=== PATIENT | male | born 1970 | race Caucasian/White ===

== ENCOUNTER 2019-10-25 04:56 | Day surgery (SDC) | payer OTHER, SELFPAY ==
[2019-10-25] VITALS (32 sets, daily range): BP systolic 84–148; BP diastolic 52–93; PULSE 56–92; RESP 12–20; TEMP 36.1–37.1; O2SAT 98–100
--- NOTE | ~2019-10-25 | XR_ITS ---
EXAMINATION: XR retrograde pyelo w/stent LT EXAM DATE: 10/25/2019 13:12 INDICATION: Cystoscopy. Stone extraction left side. TECHNIQUE: Fluoroscopy used during XR retrograde pyelo w/stent LT performed by Dr. Zach Goel MD. The DAP for this procedure was 0.1 mGym2. Cine run(s) available for review. FINDINGS: Left ureter was cannulated, injected. Final images demonstrate a double-J ureteral stent i n expected position. Correlate with procedure note. IMPRESSION: Fluoroscopy used during XR retrograde pyelo w/stent LT. Reviewed, dictated and finalized at location A.
--- NOTE | ~2019-10-25 | CT_ITS ---
EXAMINATION: CT abdomen pelvis wo con DATE: 10/25/2019 05:33 INDICATION: Left lower quadrant and left flank pain for 2 weeks. Hematuria. History of kidney stones. TECHNIQUE: Computed tomography (CT) of the abdomen and pelvis was performed without intravenous contr ast. Automated exposure control and iterative reconstruction technique were employed. Exam dose: 215 .04 mGy-cm total exam DLP. COMPARISON: 06/20/2010 CT renal scan FINDINGS: Calcified left hilar and mediastinal nodes consistent with old pulmonary granulomatous dise ase. The included lower lung zones are clear of infiltrate or consolidation. Mild discoid scarring in the left lower lobe. Normal heart size. No pericardial or pleural effusion. The liver, gallbladder, bile ducts, spleen, pancreas and pancreatic duct are unremarkable. Normal morphology of the adrenal glands. There is an approximately 6 x 3 x 3 mm partially obstructive calculus of the distal left ureter at th e left ureterovesical junction with mild associated hydroureteronephrosis and perinephric and periure teral stranding. Normal caliber of the abdominal aorta. No intraperitoneal or retroperitoneal or pelvic mass lesion or adenopathy or ascites. Normal appendix. No bowel obstruction or intraperitoneal free air. Small fat-containing umbilical hernia. Moderate degenerative disc disease at L5-S1. IMPRESSION: 6 x 3 x 3 P partially obstructive distal left ureteral calculus with mild left hydrouret eronephrosis Reviewed, dictated and finalized at Location A. Reviewed, dictated and finalized at location A. IMPRESSION: 6 x 3 x 3 P partially obstructive distal left ureteral calculus wi th mild left hydroureteronephrosis
--- NOTE | ~2019-10-25 | XR_ITS ---
EXAMINATION: XR abdomen/kub 1V DATE: 10/25/2019 06:08 INDICATION: Nephrolithiasis presenting with left flank pain TECHNIQUE: A supine view of the abdomen was obtained. COMPARISON: None. FINDINGS: 6 x 2 mm stone at the left ureterovesicular junction. No other evident urolithiasis. Small amount of gas and stool scattered throughout the colon. No dilated loops of gas-filled bowel to suggest obstruc tion. Unfused S1 spinous process. IMPRESSION: 1. 6 x 2 mm stone at the left ureterovesicular junction. Reviewed, dictated and finalized at location A.
--- NOTE | 2019-10-25 05:15 | ED.ABDPAIN ---
HPI - Abdominal Pain General Chief Complaint: Urogenital-Male <Eugenio Lake MD - Last Filed: 10/25/19 22:36> Stated Complaint: kidney stone <Eugenio Lake MD - Last Filed: 10/25/19 22:36> Time Seen by Provider: 10/25/19 05:04 <Eugenio Lake MD - Last Filed: 10/25/19 22:36> History of Present Illness HPI narrative: 49 yo male with h/o kidney stones presents c/o left flank pain. He says that he has had mild pain for about 2 weeks as well as some transient hematuria. He contacted his PCP and was started on flomax. He also spoke with his urologist, Dr. Sotomayor, who was planning to get imaging. He awoke from sleep this morning with much more severe pain. He says that it feels similar to previous stone, but the location is slightly different. No vomiting, diarrhea, fever, cough. <Eugenio Lake MD - Last Filed: 10/25/19 22:36> Related Data Home Medications: Home Medications Medication Instructions Recorded Confirmed pravastatin [Pravachol] 20 mg PO DAILY 10/25/19 10/25/19 tamsulosin [Flomax] 0.4 mg PO DAILY 10/25/19 10/25/19 <Eugenio Lake MD - Last Filed: 10/25/19 22:36> Allergies/Adverse Reactions: Allergies Allergy/AdvReac Type Severity Reaction Status Date / Time grass pollen Allergy Unknown Unknown Verified 10/25/19 05:32 No Known Allergies Allergy Verified 10/25/19 05:32 <Eugenio Lake MD - Last Filed: 10/25/19 22:36> Review of Systems Review of Systems: All systems reviewed & are unremarkable except as noted in HPI and below <Eugenio Lake MD - Last Filed: 10/25/19 22:36> Constitutional: Constitutional: Denies chills and Denies fever(s) <Eugenio Lake MD - Last Filed: 10/25/19 22:36> Cardiovascular: Cardiovascular: Denies chest pain <Eugenio Lake MD - Last Filed: 10/25/19 22:36> Respiratory: Respiratory: Denies dyspnea <Eugenio Lake MD - Last Filed: 10/25/19 22:36> Gastrointestinal: Gastrointestinal: Reports abdominal pain and Denies vomiting <Eugenio Lake MD - Last Filed: 10/25/19 22:36> Genitourinary: Genitourinary: Reports hematuria, Denies dysuria and Reports urinary frequency <Eugenio Lake MD - Last Filed: 10/25/19 22:36> [facility] Past Medical History Medical History: Medical History Kidney stone <Eugenio Lake MD - Last Filed: 10/25/19 22:36> Family History Family History: Family History Father Hypertension Family history of coronary artery disease Acute myocardial infarction Mother Family history of Parkinson's disease Grandparent Acute myocardial infarction Other Diabetes mellitus Family history of Alzheimer's disease <Eugenio Lake MD - Last Filed: 10/25/19 22:36> Social History Social History: Social History Smoking status: Never smoker Alcohol intake: never <Eugenio Lake MD - Last Filed: 10/25/19 22:36> Exam Const: Other: Mild distress, pacing in room <Eugenio Lake MD - Last Filed: 10/25/19 22:36> HENMT: Head: normal to inspection <Eugenio Lake MD - Last Filed: 10/25/19 22:36> Resp: Effort & Inspection: normal respiratory effort <Eugenio Lake MD - Last Filed: 10/25/19 22:36> Auscultation: clear to auscultation bilaterally <Eugenio Lake MD - Last Filed: 10/25/19 22:36> Cardio: Rate: regular rate <Eugenio Lake MD - Last Filed: 10/25/19 22:36> Rhythm: regular rhythm <Eugenio Lake MD - Last Filed: 10/25/19 22:36> GI: GI Palp: Yes Soft to palpation and No Tenderness to palpation present (GI) <Eugenio Lake MD - Last Filed: 10/25/19 22:36> Skin: General skin exam: normal color <Eugenio Lake MD - Last Filed: 10/25/19 22:36> Neuro: General: patient oriented x3 and moves all extremities <Eugenio
[2019-10-25] MEDS: ONDANSETRON INJ 4 MG/2 ML VIAL IV PUSH (05:22)
[2019-10-25] MEDS: MORPHINE SULFATE 4 MG/ML INJ IV PUSH (05:24)
[2019-10-25] MEDS: SODIUM CHLORIDE 0.9% IV 1,000 ML 999 ML IV CONT (05:30)
[2019-10-25 05:33] LABS: Basophils Percent Auto 0.5 % (0.2-1.2); Eosinophils Absolute Auto 0.1 K/mm3 (0-0.3); Eosinophils Percent Auto 1.4 % (0-4.4); Hematocrit 43.3 % (42.0-52.0); Immature Granulocyte Absolute 0.01 K/mm3 (0.00-0.031); Immature Granulocyte Percent A 0.2 % (0-0.5); Lymphocytes Absolute Auto 1.69 K/mm3 (0.9-3.2); Mean Corpuscular HGB Conc 32.3 g/dl (32-36); Mean Corpuscular Hemoglobin 30.3 pg (26-34); Mean Corpuscular Volume 93.7 fl (80-100); Mean Platelet Volume 9.3 fl (7.4-10.4); Monocytes Absolute Auto 0.5 K/mm3 (0.1-0.6); Monocytes Percent Auto 8.3 % (2.6-8.5); Neutrophils Absolute Auto 3.4 K/mm3 (1.3-6.7); Neutrophils Percent Auto 59.6 % (45.5-73.1); Platelet Count Result 179 k/mm3 (150-375); Red Blood Count 4.62 M/mm3 (4.6-6.20); Red Cell Distribution Width 12.5 % (11.5-14.5); White Blood Count 5.6 K/mm3 (4.5-10.0)
[2019-10-25 05:46] LABS: Alanine Aminotransferase 29 U/L (4-50); Albumin Level 4.3 g/dL (3.5-5.1); Alkaline Phosphatase 66 U/L (38-126); Aspartate Amino Transferase 31 U/L (17-59); Bilirubin,Total 0.6 mg/dL (0.2-1.3); Blood Urea Nitrogen 13 mg/dL (9-20); Calcium 8.8 mg/dL (8.4-10.2); Carbon Dioxide 27 mmol/L (22-30); Chloride 105 mmol/L (98-107); Estimated CRCL calculation 90 ml/min; Estimated Glomerular Filt Rate > 60; Glucose 128 mg/dL (75-110); Lipase 126 U/L (23-300); Potassium 3.9 mmol/L (3.4-5.0); Sodium 138 mmol/L (137-145)
[2019-10-25 06:26] LABS: Add Urine Microscopic? YES; Appearance Urine Clear (Clear); Bilirubin Urine Negative (Negative); Blood Urine 2+ (Negative); Color Urine Yellow (Yellow); Glucose Urine UA Negative (Negative); Ketones Urine Trace mg/dL (Negative); Leukocyte Esterase Ur Negative LEU/UL (Negative); Mucus Urine Few /lpf; Nitrate Urine Negative (Negative); Protein Urine 1+ mg/dL (Negative); RBC Urine >75 /hpf (0-2); Specific Grav Ur 1.024 (1.001-1.035); Urobilinogen Urine Negative mg/dL (<2.0); WBC Urine 0-3 /hpf
--- NOTE | 2019-10-25 07:14 | PC.NURSE ---
assuming care of pt from [place]. Pt resting in bed with family at bedside. Pt has call light in reach. Pt has no complaints of pain at this time. Pt aware of POC. Pt has no questions at this time.
[2019-10-25] MEDS: LACTATED RINGERS 1,000 ML 30 ML IV CONT (11:55)
--- NOTE | 2019-10-25 11:55 | WPDANESEPPF ---
Anes - Initial Pre Proc Eval Procedure: Operation Date: 10/25/19 13:00 Proposed Procedures p Cystoscopy, Possible Left Retrograde Pyelogram, Stone Extraction, Possible Left Ureteroscopy, Possible Left Ureteral Stent Placement - Zach Goel MD s Possible Holmium Laser Procedure - Zach Goel MD Date/Time: 10/25/19 11:55 Surgeon: Zach Goel MD Pre Op Diagnosis: kidney stone Patient Data Age: 49 Gender: M Height: 5 ft 10 in Weight: 82.6 kg Last Vital Signs Temp 37.1 C 10/25/19 05:54 Pulse 71 10/25/19 06:48 Resp 15 10/25/19 06:48 BP 104/68 10/25/19 10:31 Pulse Ox 99 10/25/19 10:45 Allergies Allergy/AdvReac Type Severity Reaction Status Date / Time grass pollen Allergy Unknown Unknown Verified 10/25/19 05:32 No Known Allergies Allergy Verified 10/25/19 05:32 Home Medications Medication Instructions Recorded Confirmed Type pravastatin 10/25/19 History tamsulosin mg PO 10/25/19 History Laboratory Tests 10/25/19 10/25/19 10/25/19 05:25 05:25 05:56 WBC 5.6 K/mm3 K/mm3 (4.5-10.0) RBC 4.62 M/mm3 M/mm3 (4.6-6.20) Hgb 14.0 g/dL g/dL (14.0-18.0) Hct 43.3 % % (42.0-52.0) MCV 93.7 fl fl (80-100) MCH 30.3 pg pg (26-34) MCHC 32.3 g/dl g/dl (32-36) RDW 12.5 % % (11.5-14.5) Plt Count 179 k/mm3 k/mm3 (150-375) MPV 9.3 fl fl (7.4-10.4) Immature Gran % (Auto) 0.2 % % (0-0.5) Neut % (Auto) 59.6 % % (45.5-73.1) Lymph % (Auto) 30.0 % % (18.3-44.2) [place] % (Auto) 8.3 % % (2.6-8.5) Eos % (Auto) 1.4 % % (0-4.4) Baso % (Auto) 0.5 % % (0.2-1.2) Lymph # (Auto) 1.69 K/mm3 K/mm3 (0.9-3.2) [place] # (Auto) 0.5 K/mm3 K/mm3 (0.1-0.6) Eos # (Auto) 0.1 K/mm3 K/mm3 (0-0.3) Baso # (Auto) 0.0 K/mm3 K/mm3 (0.0-0.1) Abs Immat Gran (auto) 0.01 K/mm3 K/mm3 (0.00-0.031) Absolute Neuts (auto) 3.4 K/mm3 K/mm3 (1.3-6.7) Absolute Nucleated RBC 0.0 K/mm3 K/mm3 (0.0-0.012) Nucleated RBC % 0.0 % % (0.0-0.2) Sodium 138 mmol/L mmol/L (137-145) Potassium 3.9 mmol/L mmol/L (3.4-5.0) Chloride 105 mmol/L mmol/L (98-107) Carbon Dioxide 27 mmol/L mmol/L (22-30) BUN 13 mg/dL mg/dL (9-20) Creatinine 0.90 mg/dL mg/dL (0.7-1.3) Estim Creat Clear Calc 90 ml/min ml/min Estimated GFR > 60 (59 - ) Glucose 128 mg/dL H mg/dL (75-110) Calcium 8.8 mg/dL mg/dL (8.4-10.2) Total Bilirubin 0.6 mg/dL mg/dL (0.2-1.3) AST 31 U/L U/L (17-59) ALT 29 U/L U/L (4-50) Alkaline Phosphatase 66 U/L U/L (38-126) Total Protein 7.0 g/dL g/dL (6.3-8.2) Albumin 4.3 g/dL g/dL (3.5-5.1) Lipase 126 U/L U/L (23-300) Urine Color Yellow (Yellow) Urine Appearance Clear (Clear) Urine pH 7.0 (5.0-9.0) Ur Specific [place] 1.024 (1.001-1.035) Urine Protein 1+ mg/dL H mg/dL (Negative) Urine Glucose (UA) Negative mg/dL mg/dL (Negative) Urine Ketones Trace mg/dL mg/dL (Negative) Ur Blood (Man) 2+ H (Negative) Urine Nitrate Negative (Negative) Urine Bilirubin Negative (Negative) Urine Urobilinogen Negative mg/dL mg/dL (<2.0) Leukocyte Esterase Rfl Negative CHICHI/UL CHICHI/UL (Negative) Urine RBC >75 /hpf H /hpf (0-2) Urine WBC 0-3 /hpf /hpf Urine Mucus Few /lpf H /lpf Patient hx anesthesia problems: none Family hx anesthesia problems: none [facility] Past Medical History Medical History Kidney stone Family History Family History (Reviewed 10/25/19 @ 11:
--- NOTE | 2019-10-25 12:07 | WPDURCON ---
Assessment and Plan Assessment and plan (1) Renal colic on left side: Code(s): N23 - Unspecified renal colic Status: Acute Assessment and Plan: 6mm left distal ureteral stone - plan left ureteroscopy, possible stone extraction, laser, stent insertion - riks, beneitis and alternatives discussed. Pt agrees to proceed Urology Consult Note HPI Date Seen: 10/25/19 Requesting Physician: Zach Goel MD Primary Care Provider: John Sebastian, PAKatyaC Consult Narrative Narrative: Jabari Bauer is a 49 year old male with keft sided pain. no nausea or vomiting. found to have left ureteral stone Has hx of stone in the past x2, once passed and once urs. Review of Systems Review of Systems: All systems reviewed & are unremarkable except as noted in HPI and below PMFSH Past Medical History Medical History Kidney stone Family History Family History Father Hypertension Family history of coronary artery disease Acute myocardial infarction Mother Family history of Parkinson's disease Grandparent Acute myocardial infarction Other Diabetes mellitus Family history of Alzheimer's disease Social History Social History Smoking status: Never smoker Alcohol intake: never Meds Home Medications and Allergies Home Medications Medication Instructions Recorded Confirmed Type pravastatin 10/25/19 History tamsulosin mg PO 10/25/19 History Allergies Allergy/AdvReac Type Severity Reaction Status Date / Time grass pollen Allergy Unknown Unknown Verified 10/25/19 05:32 No Known Allergies Allergy Verified 10/25/19 05:32 Vital Signs Vital Signs - 24 hr 10/25/19 05:02 10/25/19 05:54 10/25/19 06:48 Temperature 37.1 C 37.1 C Pulse Rate 92 71 Respiratory Rate 20 15 Blood Pressure 135/91 H 102/70 Pulse Oximetry 100 100 10/25/19 07:57 10/25/19 08:00 10/25/19 08:01 Temperature Pulse Rate Respiratory Rate Blood Pressure 98/54 L Pulse Oximetry 100 99 100 10/25/19 08:02 10/25/19 08:15 10/25/19 08:30 Temperature Pulse Rate Respiratory Rate Blood Pressure Pulse Oximetry 100 99 99 10/25/19 08:31 10/25/19 08:45 10/25/19 09:00 Temperature Pulse Rate Respiratory Rate Blood Pressure 114/70 Pulse Oximetry 100 100 99 10/25/19 09:01 10/25/19 09:02 10/25/19 09:15 Temperature Pulse Rate Respiratory Rate Blood Pressure 84/52 L 104/68 Pulse Oximetry 100 100 100 10/25/19 09:30 10/25/19 09:31 10/25/19 09:32 Temperature Pulse Rate Respiratory Rate Blood Pressure 116/64 Pulse Oximetry 100 100 100 10/25/19 09:45 10/25/19 10:00 10/25/19 10:01 Temperature Pulse Rate Respiratory Rate Blood Pressure 105/74 Pulse Oximetry 100 98 99 10/25/19 10:15 10/25/19 10:30 10/25/19 10:31 Temperature Pulse Rate Respiratory Rate Blood Pressure 104/68 Pulse Oximetry 98 98 98 10/25/19 10:45 Temperature Pulse Rate Respiratory Rate Blood Pressure Pulse Oximetry 99 CT : IMPRESSION: 6 x 3 x 3 P partially obstructive distal left ureteral calculus with mild left hydroureteronephrosis Exam Const: General: no acute distress HENMT: Ears: TM's normal bilaterally Resp: Effort & Inspection: normal respiratory effort Neuro: Speech: normal speech Extrem: General: normal to inspection Results Labs CBC & Chem 7: 10/25/19 05:25 10/25/19 05:25 Labs: Short CBC 10/25/19 Range/Units 05:25 WBC 5.6 (4.5-10.0) K/mm3 Hgb 14.0 (14.0-18.0) g/dL Hct 43.3 (42.0-52.0) % Plt Count 179 (150-375) k/mm3 BMP 10/25/19 05:25 Sodium 138 Potassium 3.9 Chloride 105 Carbon Dioxide 27 BUN 13 Creatinine 0.90 Glucose 128 H Calcium 8.8 Liver Function 10/25/19
[2019-10-25] MEDS: ceFAZolin 2 GM/D5W 50 ML 2 GM/50 ML BAG IVPB (12:44)
[2019-10-25] MEDS: LIDOCAINE HCL 2% GEL UROJET 10 ML PKG MUCOUS MEM (12:48)
--- NOTE | 2019-10-25 14:18 | OP_ITS ---
DATE OF PROCEDURE: 10/25/2019 PREOPERATIVE DIAGNOSIS: Left distal ureteral stone. POSTOPERATIVE DIAGNOSIS: Left distal ureteral stone. PROCEDURE PERFORMED: 1. Cystoscopy. 2. Left ureteroscopy. 3. Stone extraction. 4. Retrograde pyelogram. 5. Stent insertion. INDICATION FOR PROCEDURE: The patient is a very pleasant gentleman, who presented to the emergency department today with a 6 mm distal stone. Risks, benefits and alternatives were discussed with the patient, who agreed to proceed with left ureteroscopy today. DESCRIPTION OF PROCEDURE: An informed consent was obtained. The patient was taken to the operating room, given preoperative IV antibiotics. He was induced with anesthesia. The patient was prepped and draped in a normal sterile fashion. A 20-Ecuadorean cystoscope was inserted deeply into the bladder. We inspected the bladder with no mucosal abnormalities. We cannulated the left ureteral orifice. We dilated with an 8 to 10 coaxial dilator approximately 2 cm above the ureterovesical junction. We then countered the stone. It was grasped with a Zero tip basket and was able to manipulate the stone out through the ureteral orifice. The stone was then sent to specimen. We then reintroduced the ureteroscope. We did note significant erythema of the distal ureter where the stone had been impacted. A retrograde pyelogram showed no extravasation. There was mild hydronephrosis with a 4.8-Ecuadorean stent was placed with a curl in the lower pole and curl in the bladder. Bladder was emptied. Lidocaine instilled. The patient was awakened, taken to recovery room in stable condition. IV FLUIDS: Per Anesthesia. COMPLICATION: None. ESTIMATED BLOOD LOSS: Minimal. FOLLOWUP: The patient will follow up in the office in 1 week for ureteral stent removal. Iona I MT: Lenny
[2019-10-25] MEDS: OXYBUTYNIN CHLORIDE 5 MG TABLET PO (14:27)
== END 2019-10-25 14:49 | disposition home or self-care (01) ==
LOC: ANHED 07:29 → ANHSURGERY 11:06
PROVIDERS: Emergency Medicine; Emergency Provider Emergency Medicine; PCP Physician Assistant; Visit Provider Urology
PROC: (CPT 52352; principal; 2019-10-25 13:00)
DX: N13.2 Hydronephrosis with renal and ureteral calculous obstruction (principal)
CPT/HCPCS: 52332; 52352; 36415; 74018; 74176; 74420; 80053; 81001; 82365; 83690; 85025; 88300; 96361; 96374; 96375; 99285; A9270; C1769; C2617; J0131; J0690; J2250; J2270; J2405; J2704; J3010; J7030; J7120; Q9966

== ENCOUNTER 2020-02-09 09:35 | Outpatient (CLI) | payer OTHER, SELFPAY ==
--- NOTE | 2020-02-09 | EST_ITS ---
Patient Info Name: Jabari Bauer Age: 50 years : 1970 Gender: Male Ht: 70 in Wt: 180 lbs BSA: 2.02 m2 Exam Date: 02/09/2020 9:52 AM Exam Location: [facility] Stress Patient Status: Outpatient Admit Date: 02/09/2020 Staff Ordering Physician: RomuloJohn PA-C Attending Provider: RomuloJohn PA-C Exercise Technologist: Pauly Escalona RDCS Exercise Physician: Butch Richards DO Exam Type: CA stress test treadmill Study Info Indications R07.9 - Chest pain, unspecified A treadmill exercise stress test was performed. Summary 1. 1. Negative Tobi exercise stress test for ischemic ST changes by ECG criteria. 2. 2. Good functional capacity, achieving 10 METs of workload. 3. 3. Appropriate HR response to exercise. 4. 4. Appropriate HR recovery at 1 minute post exercise. 5. 5. No imaging with stress testing. 6. 6. Patient informed of the above results. Protocol: Tobi Stress ECG Details Stage: REST Duration (min): 5 min : 39 sec Speed (mph): 0.0 Grade (%): 0 HR (bpm): 80 SBP (mmHg): 119 DBP (mmHg): 62 METS: --- Stage: REST Duration (min): 8 min : 53 sec Speed (mph): 0.0 Grade (%): 0 HR (bpm): 86 SBP (mmHg): 119 DBP (mmHg): 62 METS: --- Stage: STAGE 1 Duration (min): 1 min : 0 sec Speed (mph): 1.7 Grade (%): 10 HR (bpm): 111 SBP (mmHg): 119 DBP (mmHg): 62 METS: --- Stage: STAGE 1 Duration (min): 2 min : 0 sec Speed (mph): 1.7 Grade (%): 10 HR (bpm): 118 SBP (mmHg): 119 DBP (mmHg): 62 METS: --- Stage: STAGE 1 Duration (min): 3 min : 0 sec Speed (mph): 1.7 Grade (%): 10 HR (bpm): 123 SBP (mmHg): 135 DBP (mmHg): 66 METS: --- Stage: STAGE 2 Duration (min): 1 min : 0 sec Speed (mph): 2.5 Grade (%): 12 HR (bpm): 132 SBP (mmHg): 135 DBP (mmHg): 66 METS: --- Stage: STAGE 2 Duration (min): 2 min : 0 sec Speed (mph): 2.5 Grade (%): 12 HR (bpm): 141 SBP (mmHg): 152 DBP (mmHg): 65 METS: --- Stage: STAGE 2 Duration (min): 3 min : 0 sec Speed (mph): 2.5 Grade (%): 12 HR (bpm): 149 SBP (mmHg): 152 DBP (mmHg): 65 METS: --- Stage: STAGE 3 Duration (min): 1 min : 0 sec Speed (mph): 3.4 Grade (%): 14 HR (bpm): 159 SBP (mmHg): 154 DBP (mmHg): 68 METS: --- Stage: STAGE 3 Duration (min): 2 min : 0 sec Speed (mph): 3.4 Grade (%): 14 HR (bpm): 169 SBP (mmHg): 154 DBP (mmHg): 68 METS: --- Stage: STAGE 3 Duration (min): 3 min : 0 sec Speed (mph): 3.4 Grade (%): 14 HR (bpm): 170 SBP (mmHg): 158 DBP (mmHg): 66 METS: --- Stage: RECOVERY Duration (min): 0 min : 59 sec Speed (mph): 0.0 Grade (%): 0 HR (bpm): 142 SBP (mmHg): 158 DBP (mmHg): 66 METS: --- Stage: RECOVERY Duration (min): 1 min : 59 sec Speed
== END 2020-02-09 09:36 | disposition home or self-care (01) ==
PROVIDERS: Visit Provider Physician Assistant
DX: R07.9 Chest pain, unspecified (principal)
CPT/HCPCS: 93017

== ENCOUNTER → 2020-08-16 10:27 | Outpatient (CLI) | payer OTHER, SELFPAY ==
--- NOTE | ~2020-08-16 | XR_ITS ---
EXAMINATION: XR hip LT min 2V INDICATION: Left hip pain TECHNIQUE: Three views of the left hip are obtained. COMPARISON: 01/25/2015 FINDINGS: Bone alignment is normal. There is no fracture. Spina bifida occulta is noted at S1. There is a bone island of the femoral head. IMPRESSION: 1. No acute osseous abnormality. Reviewed, dictated and finalized at location A. [employer] IMPLEMENTATION LEAD
--- NOTE | ~2020-08-16 | XR_ITS ---
EXAMINATION: XR shoulder RT min 2V INDICATION: Right shoulder pain TECHNIQUE: Four views of the right shoulder are submitted. COMPARISON: None FINDINGS: Normal alignment. No fracture. 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 Soft tissues are unremarkable. IMPRESSION: 1. No acute osseous abnormality. Reviewed, dictated and finalized at location A. K BONER
== END ==
PROVIDERS: PCP Physician Assistant; Visit Provider Physician Assistant
DX: M25.512 Pain in left shoulder (principal); M25.552 Pain in left hip
CPT/HCPCS: 73030; 73502

== ENCOUNTER → 2020-09-10 06:55 | Outpatient (CLI) | payer OTHER, SELFPAY ==
[2020-09-10 22:47] LABS: SARS-CoV-2 RNA PCR Negative
== END ==
PROVIDERS: PCP Physician Assistant; Visit Provider Physician Assistant
DX: R68.89 Other general symptoms and signs (principal); Z20.822 Contact with and (suspected) exposure to COVID-19; Z13.9 Encounter for screening, unspecified
CPT/HCPCS: C9803; U0003; U0005

== ENCOUNTER 2020-11-07 07:53 | Emergency (ER) | payer OTHER, SELFPAY ==
--- NOTE | ~2020-11-07 | XR_ITS ---
EXAMINATION: XR toe 1st RT min 2V EXAM DATE: 11/07/2020 08:15 INDICATION: Initial encounter following injury, with pain of the right 1st toe. TECHNIQUE: Right 1st toe frontal, lateral and oblique projections obtained and reviewed. There is no prior study for comparison. FINDINGS: There is an oblique comminuted fracture through the right 1st proximal phalanx, along the length of the shaft with additional fracture line extending into the interphalangeal joint. There is a few millimeters of displacement. Alignment is near-anatomic. Acute closed posttraumatic fracture. T here is overlying soft tissue swelling. IMPRESSION: Comminuted right 1st proximal phalangeal shaft and head intra-articular fractures. Reviewed, dictated and finalized at location B. IMPRESSION: Comminuted right 1st proximal phalangeal shaft and head intra-artic ular fractures.
[2020-11-07 07:56] VITALS: BP 143/82; PULSE 78; RESP 17; TEMP 36.5; O2SAT 100
[2020-11-07] MEDS: IBUPROFEN 600 MG TABLET PO (09:30)
[2020-11-07] MEDS: HYDROcodone/acetaminophen (*CRX) 7.5-325 MG TABLET 1 TAB PO (09:31)
--- NOTE | 2020-11-07 10:54 | ED.GENADULT ---
HPI - General Adult General Chief complaint: Extremity Injury, Lower Stated complaint: right 1st toe pain Time Seen by Provider: 11/07/20 09:01 Source: patient and RN notes reviewed Mode of arrival: ambulatory Limitations: no limitations History of Present Illness HPI narrative: Patient is a 50-year-old male who presents to emergency department for evaluation of right toe pain that began after striking the toe on a solid object right now has bruising swelling and tenderness patient notes that the pain is worse with any activity or movement denies other complaints presents in no distress has not been seen for this complaint Related Data Home Medications Medication Instructions Recorded Confirmed bupropion HCl mg PO 11/07/20 11/07/20 omeprazole 11/07/20 pravastatin 11/07/20 Allergies Allergy/AdvReac Type Severity Reaction Status Date / Time grass pollen Allergy Unknown Unknown Verified 11/07/20 08:01 Review of Systems Review of Systems: All systems reviewed & are unremarkable except as noted in HPI and below PMFSH Past Medical History Medical History (Updated 11/07/20 @ 10:57 by Александр Leach PA-C) Kidney stone Family History Family History Father Hypertension Family history of coronary artery disease Acute myocardial infarction Mother Family history of Parkinson's disease Grandparent Acute myocardial infarction Other Diabetes mellitus Family history of Alzheimer's disease Social History Social History Smoking status: Never smoker Alcohol intake: never Exam Narrative: Exam Narrative: GENERAL: Well-appearing, well-nourished, and in no acute distress. HEAD: Normocephalic, atraumatic. EYES: PERRLA and EOMI. ENT: Nares clear, no rhinorrhea or epistaxis. Mucous membranes moist. EXTREMITIES: Normal bruising swelling and tenderness of the right great toe SKIN: Warm, dry, no rash. NEURO: No focal deficits. Alert and oriented x3. Neurovascularly intact PSYCH: Normal mood and affect. Course Course Emergency Course: Patient in the room in no distress aware of case findings placed in postop shoe has crutches at home will be sent home with pain medication and provided with orthopedic follow-up Vital Signs Vital signs: Vital Signs Temperature 97.7 F 11/07/20 07:56 Pulse Rate 78 11/07/20 07:56 Respiratory Rate 17 05/06/21 07:56 Blood Pressure 143/82 H 11/07/20 07:56 Pulse Oximetry 100 11/07/20 07:56 Temperature 97.7 F 11/07/20 07:56 Pulse Rate 78 11/07/20 07:56 Respiratory Rate 17 11/07/20 07:56 Blood Pressure 143/82 H 11/07/20 07:56 Pulse Oximetry 100 11/07/20 07:56 Medical Decision Making MDM Narrative Medical decision making narrative: Patients injury or pain is consistent with musculoskeletal etiology. No signs of neurological or vascular compromise on exam. Compartments and tisues are soft without signs of compartment syndrome. Pain is felt appropriate for further evaluation on an outpatient basis. Vital Signs Vital Signs: Vital Signs Temperature 97.7 F 11/07/20 07:56 Pulse Rate 78 11/07/20 07:56 Respiratory Rate 17 11/07/20 07:56 Blood Pressure 143/82 H 11/07/20 07:56 Pulse Oximetry 100 11/07/20 07:56 Temperature 97.7 F 11/07/20 07:56 Pulse Rate 78 11/07/20 07:56 Respiratory Rate 17 11/07/20 07:56 Blood Pressure 143/82 H 11/07/20 07:56 Pulse Oximetry 100 11/07/20 07:56 Imaging Data Radiologist's impression: ITS Impressions Toe X-Ray 11/07/20 08:20 IMPRESSION: Comminuted right 1st proximal phalangeal shaft and head intra-articular fractures. Discharge Plan Discharge Clinical Impression: Fracture of right toe Patient Disposition: Home, Self-Care Condition: Stable Instructions: Antibiotic Form, Toe Fracture (ED) Additional Instructions: Wear postop shoe and use
== END 2020-11-07 11:09 | disposition home or self-care (01) ==
PROVIDERS: Emergency Provider Emergency Medicine; PCP Physician Assistant
DX: S92.411A Displaced fracture of proximal phalanx of right great toe, initial encounter for closed fracture (principal); Z87.442 Personal history of urinary calculi; W22.8XXA Striking against or struck by other objects, initial encounter
CPT/HCPCS: 73660; 99284; A9270

== ENCOUNTER 2021-09-24 07:32 | Outpatient (CLI) | payer OTHER, SELFPAY ==
--- NOTE | 2021-09-29 15:20 | WPDHOMESLEEP ---
Sleep Study - Home Unattended Date of Study: 09/24/21 Ordering Provider: Delia Sebastian, ATILIO Interpreting Provider: Naila Gamez, DO Home Sleep Study Type: Watch PAT Height: 1.78 m Weight: 86.183 kg Body Mass Index: 27.2 Neck Circumference (inches): 15.5 [place]: 9 Reason for Sleep Study Loud snoring, tossing & turning throughout the night Sleep History The patient is a 51-year-old male with hyperlipidemia and GERD that had a home sleep test ordered by his primary care. The patient denies awakening from sleep short of breath. He occasionally awakens at night with heartburn, belching or cough. He constantly snores and is frequently loudly enough that others complain. He frequently has trouble sleeping when he has a cold. He denies waking up gasping for air throughout the night. He occasionally has breathing problems at night observed by himself or others. He rarely sweats excessively at night. He occasionally has heart palpitations or irregular heartbeats during the night. He rarely falls asleep during the day but never while driving. He denies sleep paralysis, cataplexy and hypnagogic / hypnopompic hallucinations. He denies having trouble at work due to sleepiness. He rarely has nightmares. He occasionally remembers his dreams. He frequently has thoughts racing through his mind. He rarely feels sad depressed. He occasionally has anxiety. He frequently has muscular tension. He rarely notices parts of his body jerk. He denies kicking during the night. He frequently has crawling and aching feelings in his legs and occasionally has leg pain during the night. He frequently grinds his teeth but rarely awakens with morning jaw pain. He is frequently bothered by pain during the day but rarely awakened by pain during the night. He occasionally wakes up feeling stiff in morning. He frequently wakes up with sore achy muscles. He occasionally wakes up with pain in the neck, spine or other joints. He goes to bed at 11:00 p.m. on both weekdays and weekends. It takes him 30-60 minutes to fall asleep. He wakes up 10 times throughout the night. When he awakens, he will toss and turn or use the restroom. He can usually fall back asleep within 30 seconds but occasionally he can take over an hour for a fall back asleep. He wakes up at 6:00 a.m. on weekdays and 7:00 a.m. on weekends. He typically gets 7 hours of sleep per night. The patient does not spend any time in bed after waking up the morning. He currently lives with his and 2 children. He does not consume caffeinated beverages within 2 hours of bedtime. Does not engage in physical exercise before bedtime. He will watch television before falling asleep. He does not take naps in the afternoon or the evening. He drinks 10 oz of coffee per day. He will drink 12 oz of an alcoholic beverage per day. He denies tobacco and recreational drug use. [facility] Past Medical History Medical History High cholesterol IBS (irritable bowel syndrome) Kidney stone Subacromial impingement of right shoulder Wears glasses Family History Family History Father Hypertension Family history of coronary artery disease Acute myocardial infarction Mother Family history of Parkinson's disease Grandparent Acute myocardial infarction Other Diabetes mellitus Family history of Alzheimer's disease Heart disease Social History Social History Alcohol intake: current Drinks per week: 2 Substance use: never Substance use type: does not use Gender identity (if verbalized by the patient): Male Medications Home Medications Medication Instructions Recorded Confirmed Type bupropion HCl mg PO 11/07/20 12/31/20 History hydrocodone-acetaminophen 1 tablet PO Q6H PRN #10 tablet 11/07/20 12/31/20 Rx omepra
[2021-09-29 15:26] VITALS: BMI 27.2
== END 2021-09-25 11:51 | disposition home or self-care (01) ==
LOC: ANHCSM 07:33
PROVIDERS: PCP Physician Assistant; Visit Provider Physician Assistant
DX: G47.9 Sleep disorder, unspecified (principal)
CPT/HCPCS: 95800

== ENCOUNTER 2022-10-05 09:00 | Outpatient (NON) | payer OTHER, SELFPAY | END 2022-10-05 09:01 | disposition home or self-care (01) | PROVIDERS: PCP Physician Assistant; Visit Provider Internal Medicine Gastroenterology | DX: R13.10 Dysphagia, unspecified (principal) | CPT/HCPCS: 88305 ==

== ENCOUNTER 2022-10-05 09:50 | Day surgery (SDC) | payer OTHER, SELFPAY ==
[2022-09-10 11:28] VITALS: BMI 27.2
[2022-09-23 07:59] VITALS: BMI 27.5
--- NOTE | 2022-10-05 07:43 | P.PNAN_ITS ---
Anes - Initial Pre Proc Eval Procedure: Operation Date: 10/05/22 11:30 Proposed Procedures p Esophagogastroduodenoscopy - Angel Banks MD Date/Time: 10/05/22 07:43 Surgeon: Angel Banks MD Pre Op Diagnosis: DYSPHAGIA Patient Data Age: 52 Gender: M Height: 1.78 m Weight: 87 kg Allergies Allergy/AdvReac Type Severity Reaction Status Date / Time No Known Allergies Allergy Verified 10/05/22 10:24 Home Medications Medication Instructions Recorded Confirmed Type hydrocodone 5 mg-acetaminophen 325 1 tablet PO Q6H PRN pain #10 tabs 11/07/20 10/05/22 Rx mg tablet omeprazole 20 mg capsule,delayed 20 mg PO DAILY 11/07/20 10/05/22 History release pravastatin 20 mg tablet 20 mg PO DAILY 11/07/20 10/05/22 History Patient hx anesthesia problems: none Family hx anesthesia problems: none Results Review: All pre-operative results and documents have been reviewed as part of the pre- operative evaluation. [facility] Past Medical History Medical History (Updated 10/05/22 @ 07:44 by Je Bustos MD) High cholesterol Hyperlipidemia IBS (irritable bowel syndrome) Kidney stone Subacromial impingement of right shoulder Wears glasses Family History Family History Father Hypertension Family history of coronary artery disease Acute myocardial infarction Mother Family history of Parkinson's disease Grandparent Acute myocardial infarction Other Diabetes mellitus Family history of Alzheimer's disease Heart disease Social History Social History Smoking status: Never smoker Alcohol intake: current Drinks per week: 2 Substance use: never Substance use type: does not use Living arrangements: with family Gender identity (if verbalized by the patient): Male Spiritual care concerns: No Anes - Eval Final PreProcedure Day of Procedure 10/05/22 07:43 Patient weight: overweight Heart: regular rate and rhythm Airway: Mallampati scale class II Neurological: alert and oriented Last oral intake: >/= 8 hours ASA classification: II Emergent: no Anesthetic plan: proceed Anesthesia type and monitoring: general GIVS and standard monitoring Results Review: All pre-operative results and documents have been reviewed as part of the pre- operative evaluation. Informed Consent: The patient's anesthetic plan and its attendant risks and benefits were discussed with the patient/family/POA. Questions were solicited and answers provided to the satisfaction of the patient/family/POA.
[2022-10-05 10:20] VITALS: BP 116/86; PULSE 81; RESP 20; TEMP 36.8; O2SAT 98
[2022-10-05] MEDS: LACTATED RINGERS 1,000 ML 150 ML IV CONT (10:33)
--- NOTE | 2022-10-05 11:10 | P.HP_ITS ---
History of Present Illness History of Present Illness Consent: Risks, benefits, and alternatives have been discussed and questions answered. Patient agrees to proceed with procedure. Chief complaint: DYSPHAGIA Narrative: Jabari Bauer is a 52 year old male Presents for EGD. Patient reports difficulty swallowing intermittently over the last several years. He states solid food will catch in the throat. Sometimes he will regurgitate this later in the day. He has a very distant history of acid reflux. For many years he has been on omeprazole 20mg p.o. daily. This has helped to a great deal. He has no heartburn currently. Family history noncontributory. Patient presents today for EGD to assess more thoroughly. Review of Systems Review of Systems: Review of systems is noncontributory. [facility] Past Medical History Medical History (Updated 10/05/22 @ 11:11 by Angel Banks MD) High cholesterol Hyperlipidemia IBS (irritable bowel syndrome) Kidney stone Subacromial impingement of right shoulder Wears glasses Family History Family History Father Hypertension Family history of coronary artery disease Acute myocardial infarction Mother Family history of Parkinson's disease Grandparent Acute myocardial infarction Other Diabetes mellitus Family history of Alzheimer's disease Heart disease Social History Social History Smoking status: Never smoker Alcohol intake: current Drinks per week: 2 Substance use: never Substance use type: does not use Living arrangements: with family Gender identity (if verbalized by the patient): Male Spiritual care concerns: No Meds Home Medications and Allergies Home Medications Medication Instructions Recorded Confirmed Type hydrocodone 5 mg-acetaminophen 325 1 tablet PO Q6H PRN pain #10 tabs 11/07/20 10/05/22 Rx mg tablet omeprazole 20 mg capsule,delayed 20 mg PO DAILY 11/07/20 10/05/22 History release pravastatin 20 mg tablet 20 mg PO DAILY 11/07/20 10/05/22 History Allergies Allergy/AdvReac Type Severity Reaction Status Date / Time No Known Allergies Allergy Verified 10/05/22 10:24 Vital Signs Vital Signs - 24 hr 10/05/22 10:20 Temperature 98.2 F Pulse Rate 81 Respiratory Rate 20 Blood Pressure 116/86 Pulse Oximetry 98 Oxygen Delivery Room Air Exam Narrative: Physical exam reveals patient to be alert. Vital signs stable. HEENT exam is unremarkable. Patient is anicteric. Lungs are clear to auscultation and percussion. Heart is without murmur or extra sounds. Abdomen bowel sounds are present soft nontender with no organomegaly. Assessment and Plan Assessment and plan (1) Dysphagia: Code(s): R13.10 - Dysphagia, unspecified Status: Acute Assessment and Plan: patient has dysphagia. It appears to be more often with solid foods. His distant history of acid reflux raises the question of esophageal narrowing however regurgitating food at a later date raises the question of a diverticulum or pouch in the esophagus. Plan for EGD initially. Further recommendations may be given after endoscopy.
[2022-10-05 12:03] VITALS: BP 103/85; PULSE 87; RESP 16; O2SAT 96
[2022-10-05 12:13] VITALS: BP 110/77; PULSE 75; RESP 20; O2SAT 99
[2022-10-05 12:23] VITALS: BP 103/74; PULSE 70; RESP 20; O2SAT 98
--- NOTE | 2022-10-05 15:00 | WPDANESPN ---
Anes - Prog Note Post-Op Date/Time: 10/05/22 15:00 Cardiovascular status: normal Respiratory status: normal Airway patency: baseline Mental status: baseline Post-Op hydration status: normal Vital Signs: Last Vital Signs Temp 36.8 C 10/05/22 10:20 Pulse 70 10/05/22 12:23 Resp 20 10/05/22 12:23 BP 103/74 10/05/22 12:23 Pulse Ox 98 10/05/22 12:23 O2 Del Method Room Air 10/05/22 12:23 Pain Score (VAS): 0 I/O: Intake & Output 10/04/22 10/05/22 10/05/22 23:59 07:59 15:59 Intake Total 450 Balance 450 Post-procedural complaints: none Patient Feedback: Patient satisfied with anesthetic care.
== END 2022-10-05 12:42 | disposition home or self-care (01) ==
PROVIDERS: PCP Physician Assistant; Visit Provider Internal Medicine Gastroenterology
PROC: 0DJ08ZZ Inspection of Upper Intestinal Tract, Via Natural or Artificial Opening Endoscopic (ICD-10-PCS; CPT 43235; principal; 2022-10-05 11:30)
DX: R13.10 Dysphagia, unspecified (principal)
CPT/HCPCS: 43251

== ENCOUNTER 2022-10-19 08:24 | Outpatient (CLI) | payer OTHER, SELFPAY ==
--- NOTE | ~2022-10-19 | XR_ITS ---
EXAMINATION: XR barium swallow DATE: 10/19/2022 09:16 INDICATION: Dysphagia TECHNIQUE: The patient drank thick barium, gas-producing crystals, and thin barium. Fluoroscopic spot radiographs of the hypopharynx and esophagus were obtained. Fluoroscopy exposure time was 1.5 minut es. COMPARISON: None. FINDINGS: The pharynx is symmetric and without evidence of mass lesion or mucosal irregularity. The e sophagus is normal without mass or stricture. Esophageal motility is normal. There is no hiatal herni a. There was no gastroesophageal reflux with provocative maneuvers. IMPRESSION: 1. Normal esophagram. Reviewed, dictated and finalized at location A. IMPRESSION: 1. Normal esophagram.
== END 2022-10-19 08:25 | disposition home or self-care (01) ==
PROVIDERS: PCP Physician Assistant; Visit Provider Internal Medicine Gastroenterology
DX: R13.10 Dysphagia, unspecified (principal)
CPT/HCPCS: 74220

== ENCOUNTER 2023-04-21 18:54 | Emergency (ER) | payer OTHER, SELFPAY ==
--- NOTE | ~2023-04-21 | CT_ITS ---
Clinical Indication: Chest pain CT Scan of the Chest with Contrast: Technique: Contiguous sections were acquired throughout the chest after intravenous administration of 100 cc of Omnipaque 350. Dose reduction technique was used on this scan by utilizing automated expos ure control and iterative reconstruction technique. The dose-length product (DLP) was 615.14 mGy-cm. Findings: There is no evidence of any significant mediastinal, hilar or axillary lymphadenopathy. There is no f illing defect in the pulmonary arterial tree to suggest pulmonary embolus. There is no evidence of ao rtic dissection or aneurysm. There is no evidence of pleural or pericardial effusion. Lungs are clear, aside from probable mild bibasilar atelectatic/hypoventilatory changes.. Images through the upper abdomen reveal no abnormalities. Impression: No evidence of pulmonary embolus, aortic dissection, or aortic aneurysm. Clear lungs. Reviewed, dictated and finalized at [facility]. Impression: No evidence of pulmonary embolus, aortic dissection, or aortic aneurysm. Clear lungs.
--- NOTE | ~2023-04-21 | XR_ITS ---
EXAMINATION: XR chest 2V DATE: 04/21/2023 19:48 INDICATION: Chest pain. Nausea. TECHNIQUE: Frontal and lateral views of the chest were obtained. COMPARISON: None. FINDINGS: There is no pneumonia, pleural effusion, or pneumothorax. The heart size is normal. IMPRESSION: 1. No acute cardiopulmonary disease. Reviewed, dictated and finalized at location E.
[2023-04-21 19:19] VITALS: BP 111/70; PULSE 76; RESP 20; TEMP 36.6; O2SAT 99
--- NOTE | 2023-04-21 19:31 | ECG_ITS ---
Measurements Intervals [place] Rate: 68 P: 8 AL: 129 QRS: 25 QRSD: 94 T: 14 QT: 376 QTc: 402 Interpretive Statements SINUS RHYTHM NORMAL ECG NO PREVIOUS ECG AVAILABLE FOR COMPARISON Electronically Signed On 04-22-2023 17:09:57 CDT by Jabari Bustamante M.D.
[2023-04-21 19:54] LABS: Basophils Percent Auto 0.3 % (0.2-1.2); Eosinophils Absolute Auto 0.1 K/mm3 (0-0.3); Eosinophils Percent Auto 1.3 % (0-4.4); Hematocrit 41.7 % (42.0-52.0); Hemoglobin 13.8 g/dL (14.0-18.0); Immature Granulocyte Absolute 0.02 K/mm3 (0.00-0.031); Immature Granulocyte Percent A 0.3 % (0-0.5); Lymphocytes Absolute Auto 2.19 K/mm3 (0.9-3.2); Lymphocytes Percent Auto 31.2 % (18.3-44.2); Mean Corpuscular HGB Conc 33.1 g/dl (32-36); Mean Corpuscular Hemoglobin 31.1 pg (26-34); Mean Corpuscular Volume 93.9 fl (80-100); Mean Platelet Volume 9.4 fl (7.4-10.4); Monocytes Absolute Auto 0.5 K/mm3 (0.1-0.6); Monocytes Percent Auto 6.7 % (2.6-8.5); Neutrophils Absolute Auto 4.2 K/mm3 (1.3-6.7); Neutrophils Percent Auto 60.2 % (45.5-73.1); Platelet Count Result 174 k/mm3 (150-375); Red Blood Count 4.44 M/mm3 (4.6-6.20); Red Cell Distribution Width 12.5 % (11.5-14.5)
[2023-04-21 20:04] LABS: INR 0.9; Prothrombin Time 12.9 Seconds (11.1-14.7)
[2023-04-21 20:05] LABS: Alanine Aminotransferase 26 U/L (6-50); Albumin Level 4.3 g/dL (3.5-5.1); Alkaline Phosphatase 56 U/L (38-126); Anion Gap 5 mmol/L (8-16); Aspartate Amino Transferase 28 U/L (17-59); Bilirubin,Total 0.7 mg/dL (0.2-1.3); Blood Urea Nitrogen 13 mg/dL (9-20); Calcium 8.6 mg/dL (8.4-10.2); Carbon Dioxide 26 mmol/L (22-30); Chloride 104 mmol/L (98-107); Estimated CRCL calculation 96 ml/min; Estimated Glomerular Filt Rate > 60; Glucose 120 mg/dL (65-110); Lipase 195 U/L (23-300); Potassium 3.9 mmol/L (3.4-5.0); Sodium 135 mmol/L (137-145)
[2023-04-21 20:13] LABS: Partial Thromboplastin Time 20.3 SECONDS (22.3-36.8)
[2023-04-21 20:17] LABS: Troponin I < 0.012 ng/mL (0.000-0.034)
[2023-04-21 22:53] VITALS: BP 133/83; PULSE 75; RESP 18; TEMP 36.8; O2SAT 99
[2023-04-21 23:31] LABS: Troponin I < 0.012 ng/mL (0.000-0.034)
[2023-04-22 00:24] VITALS: BP 116/80; PULSE 72; RESP 20; TEMP 36.6; O2SAT 99
[2023-04-22 01:57] VITALS: BP 130/71; PULSE 71; RESP 17; O2SAT 94
[2023-04-22] MEDS: MORPHINE SULFATE (*CRX) 4 MG/ML INJ IV PUSH (03:00)
[2023-04-22] MEDS: SODIUM CHLORIDE 0.9% IV 1,000 ML 999 ML IV CONT (03:29)
[2023-04-22 03:39] VITALS: BP 121/81; PULSE 81; RESP 13; O2SAT 95
--- NOTE | 2023-04-22 04:15 | ED.GENADULT ---
HPI - General Adult General Chief complaint: Abdominal Pain Stated complaint: abd pain Time Seen by Provider: 04/22/23 00:33 Source: patient and family History of Present Illness HPI narrative: Initially recorded as abdominal pain but patient denies. Patient experienced sudden onset 10/10 R sided CP at 1800 while otuside putting garden hose away. This has never happened before. Morphine he received from EMS helped. Not related to positio changes. Radiates to back. 10/10 pain (like prior kidney stone). Constant. Associated with nausea that has since resolved; no vomiting. No fevers. Pain with inspriation. He was initially clammy and diaphoretic but that resolved. No cough. No syncope. Saw a shelver 7-8 years ago but does not continue to follow. Pt/ state that they did have difficulty obtaining a blood pressure in one of patient's arms at triage. Quality: stabbing Related Data Home Medications Medication Instructions Recorded Confirmed omeprazole 20 mg capsule,delayed 20 mg PO DAILY 11/07/20 10/05/22 release pravastatin 20 mg tablet 20 mg PO DAILY 11/07/20 10/05/22 Allergies Allergy/AdvReac Type Severity Reaction Status Date / Time No Known Allergies Allergy Verified 04/21/23 19:28 [facility] Past Medical History Medical History (Updated 04/23/23 @ 00:00 by Mavis Nugent) High cholesterol Hyperlipidemia IBS (irritable bowel syndrome) Kidney stone Subacromial impingement of right shoulder Wears glasses Family History Family History Father Hypertension Family history of coronary artery disease Acute myocardial infarction Mother Family history of Parkinson's disease Grandparent Acute myocardial infarction Other Diabetes mellitus Family history of Alzheimer's disease Heart disease Social History Social History Smoking status: Never smoker Alcohol intake: current Drinks per week: 2 Substance use: never Substance use type: does not use Living arrangements: with family Gender identity (if verbalized by the patient): Male Spiritual care concerns: No Exam Const: General: healthy appearing and alert; No confusion or diaphoretic Nutritional Appearance: well nourished Orientation/consciousness: patient oriented x3 HENMT: Head: normal to inspection Chest: Chest palpation & inspection: normal inspection of the chest Other: No ecchymosis, asymmetry, palpable masses Resp: Effort & Inspection: normal respiratory effort, not labored, no retractions, not tachypneic and no use of accessory muscles Auscultation: clear to auscultation bilaterally, no crackles, no rhonchi and no wheezes Cardio: Rate: regular rate Rhythm: regular rhythm Heart sounds: no murmurs Other: symmetric pulses throughout GI: GI Palp: Yes Soft to palpation and No Tenderness to palpation present (GI) Skin: General skin exam: normal color, no jaundice and no pallor Neuro: General: patient oriented x3 and moves all extremities Course Vital Signs Vital signs: Vital Signs Temperature 98 F 04/21/23 19:19 Pulse Rate 76 04/21/23 19:19 Respiratory Rate 20 04/21/23 19:19 Blood Pressure 111/70 04/21/23 19:19 Pulse Oximetry 99 04/21/23 19:19 Oxygen Delivery Room Air 04/21/23 19:19 Temperature 98.1 F 04/22/23 04:39 Pulse Rate 67 04/22/23 04:39 Respiratory Rate 12 04/22/23 04:39 Blood Pressure 116/67 04/22/23 04:39 Pulse Oximetry 94 04/22/23 04:39 Oxygen Delivery Room Air 04/21/23 19:19 Medical Decision Making MDM Narrative Medical decision making narrative: Patient presents with acute onset CP. Although low risk factors, story is concerning for aortic dissection given acuity, maximal intensity at onset. Will obtain CT to evaluate. Patient given additional morphine for analgesia. Given suspicion for possible dissection, advised Davy
[2023-04-22 04:39] VITALS: BP 116/67; PULSE 67; RESP 12; TEMP 36.7; O2SAT 94
== END 2023-04-22 04:40 | disposition home or self-care (01) ==
PROVIDERS: Emergency Provider Student in an Organized Health Care Education/Training Program; PCP Physician Assistant
DX: R07.9 Chest pain, unspecified (principal); E78.5 Hyperlipidemia, unspecified
CPT/HCPCS: 36415; 71046; 71275; 80053; 83690; 84484; 85025; 85610; 85730; 93005; 96361; 96374; 99284; J2270; J7030; Q9967

== ENCOUNTER → 2023-05-14 08:16 | Outpatient (CLI) | payer OTHER, SELFPAY ==
--- NOTE | ~2023-05-14 | US_ITS ---
EXAMINATION: US right upper quadrant DATE: 05/14/2023 08:57 INDICATION: Right upper quadrant pain TECHNIQUE: Multiple grayscale and Doppler ultrasound images of the abdomen were obtained. COMPARISON: CT, 10/25/2019 FINDINGS: The head and body of the pancreas are normal. The pancreatic tail is obscured by bowel gas. The liver is normal with normal echogenicity and echotexture. No surface nodularity. Normal hepatope edd flow in the main portal vein. There is a 7 mm polyp of the gallbladder. No pericholecystic fluid or gallbladder wall thickening are identified. The normal common bile duct measures 3 mm. There was n o sonographic Swenson sign. IMPRESSION: 1. 7 mm gallbladder polyp consistent with benign polyp versus adenoma versus small cancer. Follow-up ultrasound in one year is recommended. 2. No sonographic correlate for right upper quadrant pain. Reviewed, dictated and finalized at location B. ACQUISITION SPECIALIST IMPRESSION: 1. 7 mm gallbladder polyp consistent with benign polyp versus adenoma versus sm all cancer. Follow-up ultrasound in one year is recommended. 2. No sonographic correlate for right upper quadrant pain.
== END ==
PROVIDERS: PCP Physician Assistant; Visit Provider Physician Assistant
DX: K82.4 Cholesterolosis of gallbladder (principal)
CPT/HCPCS: 76705

== ENCOUNTER 2023-07-09 06:49 | Outpatient (CLI) | payer OTHER, SELFPAY ==
--- NOTE | ~2023-07-09 | NM_ITS ---
EXAMINATION: NM hepatobiliary wo pharm DATE: 07/09/2023 10:29 INDICATION: Right upper quadrant abdominal pain COMPARISON: None. TECHNIQUE: 5.5 mCi Tc-99m mebrofenin (Choletec) was administered intravenously. Scintigraphic images of the abdomen were obtained for one hour. At the 1 hour time point, the patient drank 8 oz Ensure, and imaging was continued for 60 minutes. Gallbladder ejection fraction was calculated by the technol ogist. FINDINGS: There is normal clearance of radiotracer from the blood pool. There is homogeneous tracer u ptake by the liver. Activity progresses to the bowel and gallbladder. The gallbladder ejection fract ion (GBEF) is 33%. Note that with this technique, normal GBEF >= 33%. IMPRESSION: 1. Gallbladder ejection fraction is at the lowest limits of normal. This could be normal but is als o borderline for gallbladder dysfunction or chronic cholecystitis in the appropriate clinical setting . Reviewed, dictated and finalized at location A. POND OPERATOR IMPRESSION: 1. Gallbladder ejection fraction is at the lowest limits of normal. This coul d be normal but is also borderline for gallbladder dysfunction or chronic jesse cystitis in the appropriate clinical setting.
== END 2023-07-09 06:50 | disposition home or self-care (01) ==
PROVIDERS: PCP Physician Assistant; Visit Provider Physician Assistant
DX: R10.11 Right upper quadrant pain (principal)
CPT/HCPCS: 78226; A9537

== ENCOUNTER 2024-03-15 05:42 | Emergency (ER) | payer OTHER, SELFPAY ==
--- NOTE | 2024-03-15 06:28 | ED.GENADULT ---
HPI - General Adult General Chief complaint: Unspecified Stated complaint: hemorrhoids Time Seen by Provider: 03/15/24 05:46 History of Present Illness HPI narrative: This is a 54-year-old male with a past medical history significant for hemorrhoids. He had a previous hemorrhoid 10 years prior that required lancing in outpatient setting. He states he has been working out extensively and knows that he has been having recurrence of his hemorrhoid. He has some difficulties lying down and sitting on his rectum. No rectal bleeding aside or blood when he wipes on the toilet paper. He states that it resumes the last time he had a hemorrhoid. No other trauma, no systemic features such as fever, chills, nausea, vomiting, abdominal pain, back pain. Was otherwise in his normal state of health. Related Data Home Medications Medication Instructions Recorded Confirmed pravastatin 20 mg tablet 20 mg PO DAILY 11/07/20 07/23/23 ferrous sulfate 325 mg (65 mg 325 mg PO DAILY 06/23/23 07/23/23 iron) tablet pantoprazole 20 mg tablet,delayed 20 mg PO QAM 06/23/23 07/23/23 release citalopram 10 mg tablet 10 mg PO ONCE PRN 07/15/23 07/23/23 Allergies Allergy/AdvReac Type Severity Reaction Status Date / Time No Known Allergies Allergy Verified 07/23/23 09:27 Review of Systems Review of Systems: As reviewed above in HPI [facility] Past Medical History Medical History GERD (gastroesophageal reflux disease) High cholesterol Hyperlipidemia IBS (irritable bowel syndrome) Kidney stone Subacromial impingement of right shoulder Wears glasses Family History Family History Father Hypertension Family history of coronary artery disease Acute myocardial infarction Mother Family history of Parkinson's disease Grandparent Acute myocardial infarction Other Diabetes mellitus Family history of Alzheimer's disease Heart disease Social History Social History Smoking status: Never smoker Alcohol intake: current Drinks per week: 2 Substance use: never Substance use type: does not use Living arrangements: with family Occupation/Education: occupation 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 Mucous membranes moist. NECK: Supple. CHEST: [Clear to auscultation. No respiratory distress.] HEART: [Regular rate and rhythm]. No murmur heard. [Normal peripheral pulses.] ABDOMEN: [Soft, nondistended], [nontender], [No rigidity or guarding] there is an external hemorrhoid that appears non thrombosed on the inner right gluteal fold, tender to palpation but no obvious blood clot formation, cellulitic skin changes or warmth or erythema. No other identifiable hemorrhoids. The rectum without any anal fissures or obstruction. EXTREMITIES: Normal range of motion. [No edema.] SKIN: Warm, dry, no rash. NEURO: [No focal deficits]. Alert and oriented [x3.] PSYCH: [Normal mood and affect.] Medical Decision Making MDM Narrative Medical decision making narrative: 54-year-old male presenting with an external hemorrhoid. Hemorrhoid is nonthrombosed, soft but tender to palpation. He has had experience with hemorrhoids in the past. Previously had a general surgeon in [place]. He does have a general surgeon following up with an unrelated outpatient surgery next week and he will follow-up with them about this hemorrhoid but requesting treatment here in the emergency department. We have given him a dose of Anusol as well as Toradol for analgesia. Will be sending him h
[2024-03-15] MEDS: KETOROLAC 10 MG TABLET PO (06:56)
[2024-03-15] MEDS: HYDROCORTISONE ACETATE 25 MG SUPPOSITORY RECTAL (06:57)
== END 2024-03-15 06:50 | disposition home or self-care (01) ==
PROVIDERS: Emergency Provider Student in an Organized Health Care Education/Training Program; PCP Physician Assistant
DX: K64.4 Residual hemorrhoidal skin tags (principal); K21.9 Gastro-esophageal reflux disease without esophagitis; E78.5 Hyperlipidemia, unspecified
CPT/HCPCS: 99283; A9270

== ENCOUNTER 2024-04-17 07:00 | Outpatient (NON) | payer OTHER, SELFPAY | END 2024-04-17 07:01 | disposition home or self-care (01) | LOC: ANHLAB 04-18 07:32 | PROVIDERS: PCP Physician Assistant; Visit Provider Surgery | DX: K82.8 Other specified diseases of gallbladder (principal) | CPT/HCPCS: 88304 ==

== ENCOUNTER 2024-04-17 07:51 | Day surgery (SDC) | payer OTHER, SELFPAY ==
[2024-04-10 07:55] VITALS: BMI 27.9
[2024-04-10 11:49] VITALS: BMI 26.5
[2024-04-17] VITALS (10 sets, daily range): BP systolic 107–119; BP diastolic 67–88; PULSE 57–82; RESP 14–18; TEMP 36–36.8; O2SAT 95–100
--- NOTE | 2024-04-17 06:52 | WPDANESEPPF ---
Anes - Initial Pre Proc Eval Procedure: Operation Date: 04/17/24 09:30 Proposed Procedures p Laparoscopic Cholecystectomy - Andrey Lan DO s Umbilical Hernia Repair - Andrey Lan DO Date/Time: 04/17/24 06:52 Surgeon: Andrey Lan DO Pre Op Diagnosis: Biliary Dyskinesia, Umbilical Hernia Patient Data Age: 54 Gender: M Height: 1.8 m Weight: 86.3 kg Allergies Allergy/AdvReac Type Severity Reaction Status Date / Time No Known Allergies Allergy Verified 04/17/24 08:27 Home Medications Medication Instructions Recorded Confirmed Type pravastatin 20 mg tablet 20 mg PO DAILY 11/07/20 04/17/24 History ferrous sulfate 325 mg (65 mg 325 mg PO DAILY 06/23/23 04/17/24 History iron) tablet pantoprazole 20 mg tablet,delayed 20 mg PO QAM 06/23/23 04/17/24 History release vitamin B complex 1 tablet PO DAILY 04/10/24 04/17/24 History Patient hx anesthesia problems: none Family hx anesthesia problems: none Results Review: All pre-operative results and documents have been reviewed as part of the pre-operative evaluation. [facility] Past Medical History Medical History GERD (gastroesophageal reflux disease) High cholesterol Hyperlipidemia IBS (irritable bowel syndrome) Kidney stone Subacromial impingement of right shoulder Wears glasses Family History Family History Father Hypertension Family history of coronary artery disease Acute myocardial infarction Mother Family history of Parkinson's disease Grandparent Acute myocardial infarction Other Diabetes mellitus Family history of Alzheimer's disease Heart disease Social History Social History (Updated 04/07/24 @ 09:00 by Opal Caldera CMA) Smoking status: Never smoker Second hand tobacco smoke exposure: Yes Alcohol intake: current Drinks per week: 1 Alcohol use details: beer Substance use: never Substance use type: does not use Do You Feel Safe in your Home?: Yes Lack of Transportation: No Lack of Food: Never True Current Housing: I Have Housing Concerned About Future Housing: No Difficulty Paying Gas/Electric Bills: No Difficulty Paying for Meds: No Currently Unemployed: No Education: Bachelor's Degree Difficulty w/ Childcare or Family Care: No Living arrangements: with family Occupation/Education: occupation 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 Informed Consent: The patient's anesthetic plan and its attendant risks and benefits were discussed with the patient/family/POA. Questions were solicited and answers provided to the satisfaction of the patient/family/POA.
[2024-04-17] MEDS: LACTATED RINGERS 1,000 ML 30 ML IV CONT (08:32)
[2024-04-17] MEDS: ACETAMINOPHEN 500 MG TABLET 1000 MG PO (08:48)
--- NOTE | 2024-04-17 09:30 | WPDHPUPDATE1 ---
History and Physical Update Update Date/Time: 04/17/24 09:30 History and Physical has been reviewed, including an updated exam of the patient. There are NO changes in the patient's condition. Risks, benefits, and alternatives have been discussed and questions answered. Patient agrees to proceed with procedure.
[2024-04-17] MEDS: ceFAZolin SODIUM 2 GM/20 ML SW SYRINGE IV PUSH (10:14)
[2024-04-17] MEDS: BUPIVACAINE/EPINEPHRINE 0.5% 10 ML VIAL 30 ML INFILTRATE (11:02)
--- NOTE | 2024-04-17 11:25 | W.PM.PROC2 ---
Procedure Note - Detailed Date of Procedure 04/17/24 Pre-op Diagnosis Biliary Dyskinesia, Umbilical Hernia Post-op Diagnosis Same Procedure Performed 1.Laparoscopic cholecystectomy 2. Open 1 cm umbilical hernia repair Surgeon Andrey Lan, DO Anesthesia General and Local (0.5% bupivacaine) Indications This is a 54-year-old man who presented with intermittent right upper quadrant abdominal pain. He was found to have a poorly functioning gallbladder on HIDA scan. He also had an ultrasound which showed a 7 mm gallbladder polyp. On exam he was found to have a small 1 cm umbilical hernia. Discussions were made with the patient about treatment options and decision was made to proceed with laparoscopic cholecystectomy and open umbilical hernia repair. Findings Laparoscopic cholecystectomy was performed. The gallbladder appeared grossly normal without any significant inflammation. The cystic duct appeared normal in size. The gallbladder was removed and sent to the lab for pathology. The umbilical hernia measured 1 cm. This was repaired primarily using 0 Ethibond [id number] sutures. No other intra-abdominal abnormalities were noted. Description of Procedure Procedure as well as risks, benefits, and alternatives were discussed with patient. Written consent was obtained and placed in chart prior to procedure. The patient was brought back to surgical suite. Patient was placed in supine position on operating table. Time-out was done to confirm patient and procedure. Patient was then intubated by the anesthesia department. Abdomen was prepped and draped in sterile fashion using chlorhexidine prep. 0.5% bupivacaine with epinephrine was infiltrated at each site of incision. An 11 millimeter transverse incision was made just superior to the umbilicus using a 15 blade scalpel. Blunt dissection was carried down to the linea alba. The linea alba was then incised using a 15 blade scalpel. The peritoneum was then bluntly entered. An 11 millimeter trocar was inserted and carbon dioxide insufflation was used to create a pneumoperitoneum. The camera was inserted and the abdomen was inspected. The patient was placed in reverse Trendelenberg position and rotated slightly to the left. A 5 millimeter incision was made in the epigastric region, and a 5 millimeter trocar was inserted under direct visualization. Two 5 millimeter incisions were made in the right upper quadrant, and two 5 millimeter trocars were inserted under direct visualization. The gallbladder was identified and grasped at the fundus and retracted superiorly. It was then grasped at the infundibulum retracted laterally. Careful dissection around the neck of the gallbladder was performed using blunt dissection with a [place] grasper and hook electrocautery. The cystic duct was identified, and a window was created behind it. The cystic artery was also identified and a window was created behind it. The critical view of safety was identified, visualizing the cystic duct running directly into the neck of the gallbladder, and the cystic artery running directly into the wall of the gallbladder. A 5 millimeter clip syrup mixer assistant was then used to place 2 clips proximally and 1 clip distally on both the cystic duct and cystic artery. They were then both transected using endoscopic scissors. Once safely away from the macrina hepatitis, the gallbladder was dissected free from the liver bed using hook electrocautery. Hemostasis was achieved along the way. The gallbladder was removed completely and then removed through the umbilical port. The liver bed was then inspected. Hemostasis appeared adequate, and our clips appeared secure. No other abnormalities were seen. The patient was flattened out in bed, and 1 final inspection was made around the abdominal cavity. The ports were then removed under direct visualization, the camera was removed, and the pneumoperitoneum was released. The supraumbilical incis
[2024-04-17] MEDS: fentaNYL CITRATE INJ (*CRX) 100 MCG/2 ML VIAL 25 MCG IV PUSH ×2 (11:54→11:58)
--- NOTE | 2024-04-17 12:17 | WPDANESPN ---
Anes - Prog Note Post-Op Date/Time: 04/17/24 12:17 Cardiovascular status: normal Respiratory status: normal Airway patency: baseline Mental status: baseline Post-Op hydration status: normal Vital Signs: Last Vital Signs Temp 36.0 C L 04/17/24 11:19 Pulse 58 L 04/17/24 12:10 Resp 14 04/17/24 12:10 BP 110/80 04/17/24 12:10 Pulse Ox 97 04/17/24 12:10 O2 Del Method Room Air 04/17/24 12:10 O2 Flow Rate 6 04/17/24 11:40 Pain Score (VAS): 3 I/O: Intake & Output 04/16/24 04/17/24 04/17/24 23:59 07:59 15:59 Intake Total 200 Output Total 300 Balance -100 Post-procedural complaints: none Patient Feedback: Patient satisfied with anesthetic care. Other Findings: Patient vital signs back to baseline. Patient denies nausea and vomiting. Patient's pain under control. Patient OK for discharge.
[2024-04-17] MEDS: oxyCODONE HCL (*CRX) 5 MG TAB IR PO (12:36)
== END 2024-04-17 13:40 | disposition home or self-care (01) ==
PROVIDERS: PCP Physician Assistant; Visit Provider Surgery
PROC: 0FT44ZZ Resection of Gallbladder, Percutaneous Endoscopic Approach (ICD-10-PCS; CPT 47562; principal; 2024-04-17 09:30)
PROC: (CPT 47562; 2024-04-17 09:30)
DX: K83.8 Other specified diseases of biliary tract (principal); K42.9 Umbilical hernia without obstruction or gangrene
CPT/HCPCS: 47562; 49591

== ENCOUNTER 2024-10-23 13:24 | Outpatient (CLI) | payer OTHER, SELFPAY ==
--- NOTE | ~2024-10-23 | US_ITS ---
RIGHT LOWER EXTREMITY VENOUS ULTRASOUND Ordering provider: Kingsley Ruff M.D. History: . edema . Comparison: None. FINDINGS: --COMMON FEMORAL: Patent and free of thrombus. Normal compressibility, phasic flow and augmentation. --PROXIMAL SUPERFICIAL FEMORAL: Patent and free of thrombus. Normal compressibility, phasic flow and augmentation. --DISTAL SUPERFICIAL FEMORAL: Patent and free of thrombus. Normal compressibility, phasic flow and au gmentation. --POPLITEAL: Patent and free of thrombus. Normal compressibility, phasic flow and augmentation. --POSTERIOR TIBIAL: Patent and free of thrombus. Normal compressibility, phasic flow and augmentation . IMPRESSION: Negative right lower extremity venous US. No deep vein thrombosis. Reviewed, dictated and finalized at location A.
--- OUTSIDE RECORDS SUMMARY | 2024-10-23 15:07 | XMS_ITS | Clinical Summary ---
Author Organization [facility] Address [address] [place] [address] Care Team Providers Care Tar Heater Operator Name Role Phone Samson Jules MD Unavailable [phone] Delia Alvarado Primary Care Pr ovider Source Comments [facility],non-owned Affiliates and Associated Physician Practices is amultiple site organization consisting of ambulatory clinics and hospital sitesin [place], [place], [place] and [place]. This disclosure is being madepursuant to the Care Everywhere program and may not contain all information available regarding this patient. Last updated 18.[facility] Allergies No known active allergies Medications * Be aware that medications may not be up to date on this document. Alwaysverify current medications with the patient. omeprazole (PRILOSEC) 20 MG capsule 02/15/20 18 Active pravastatin (PRAVACHOL) 20 MG tablet 05/14/20 18 Active traMADol (Ultram) 50 MG tablet Take 1 (one) tablet by mouth every 6 hours as needed 06/11/20 22 Active pantoprazole EC (Protonix) 40 MG tablet TAKE 1 TABLET BY MOUTH EVERY DAY. STOP TAKING THE OMEPRAZOLE Active citalopram (CeleXA) 10 MG tablet Take 1 (one) tablet by mouth once daily 04/09/20 23 Active sildenafil (Viagra) 50 MG tablet take one tablet PO as directed PRN. max 100mg/24 hours. Active methylPREDNISolone (Medrol Dosepak) 4 MG tablet Take by mouth as directed Take as directed by mouth per package instructions. 21 tablet 07/06/19 24 Active Additional Information Patient not taking.Reported on 10/14/2023 iron polysaccharides (Niferex 150) 150 MG capsule Take by mouth once daily Active ascorbic acid (Vitamin C) 250 MG tablet Take 1 (one) tablet by mouth once daily Active meloxicam (Mobic) 15 MG tablet TAKE 1 TABLET BY MOUTH EVERY DAY 30 tablet 2 01/13/20 24 Active Social History Tobacco Use Types Packs/Day Years Used Date Smoking Tobacco: Never Smokeless Tobacco: Never Tobacco Cessation:Counseling Given: Not Answered Alcohol Use Standard Drinks/Week Comments Yes 0 (1 standard drink = 0.6 oz pur e alcohol) 1 drink every couple of weeks PHQ-2 Answer Date Recorded Patient Health Questionnaire-2 Score 1 10/14/2023 Sex and Gender Information Value Date Recorded Sex Assigned at Not on file Legal Sex Male 4:11 PM CDT Gender Identity Not on file Sexual Orientation Not on file Last Filed Vital Signs Vital Sign Reading Time Taken Comments Blood Pressure 145/82 08/26/2023 3:08 PM [employer] Pulse 79 08/26/2023 3:08 PM [employer] Temperature 36.8 C (98.2 F) 10/19/2016 11:27 AM CDT Respiratory Rate 15 08/26/2023 3:08 PM [employer]ENNEL Oxygen Saturation 97% 08/26/2023 3:08 PM [employer] Inhaled Oxygen Concentration - - Weight 88 kg (194 lb) 10/14/2023 7:38 AM CDT Height 177.8 cm (5' 10 ) 10/14/2023 7:38 AM CDT Body Mass Index 27.84 10/14/2023 7:38 AM CDT Plan of Treatment Health Maintenance Due Date Last Done Comments COLOGUARD (AGES 45-75) - COL ON CA SCREENING 1970 COLON MONITORING 1970 COLONOSCOPY - COLON CA SCREENING 1970 CT COLONOGRAPHY - COLON CA SCREENING 1970 Colorectal Cancer Screening 1970 FIT - COLON CA SCREENING 1970 FLEX SIG - COLON CA SCREENING 1970 HIV SCREENING 1985 HEPATITIS C SCREENING 01/11/1988 DTAP/TDAP/TD VACCINES (1 - Tdap) 1989 HEPATITIS B VACCINE (1 of 3 - 19+ 3-dose series) 1989 SCREENING FOR DIABETES 05/11/2017 PNEUMOCOCCAL VACCINE 50+ (1 of 1 - PCV) 01/16/2020 ZOSTER VACCINE (1 of 2) 01/16/2020 COVID-19 VACCINE (1 - 2023-2 5 season) 2024 DEPRESSION SCREENING 07/05/2024 07/06/2023 INFLUENZA VACCINE (Season Ended) 2025 HIB VACCINE Aged Out No longer eligi ble based on patient's age to complete this topic HPV VACCINE Aged Out No longer eligi ble based on patient's age to complete this topic MENINGOCOCCAL (Group B) VACC INE SHARED DECISION-MAKING Aged Out No longer eligibl e based on patient's age to complete this topic MENINGOCOCCAL GROUPS A/C/Y/W VACCINE Aged Out No longer eligible b ased on patient's age to complete this topic Insurance [facility] [employer] LEVEL FUNDED: [facility] SELF PAY NO INSURANCE Member Subscriber Plan / Payer (Ef fective for All Dates) Name:Jabari Garcia Member ID:Not on file Relation to Subscriber:Not on file Name:JABARI GARCIA Subscriber ID:Not on file (Home) Address: [address] [place] [id number] Payer ID:Not on file Group ID:Not on file Type:Self Pay Address: [facility] Care Teams Tar Heater Operator Relationship Specialty Start Date End Date Delia Alvarado PA [address] [place] [address] PCP - General Physician Car Record Clerk 06/15/22 [place] [id number] [address] Physician Anesthesiology-Pain Management 02/24/16
--- OUTSIDE RECORDS SUMMARY | 2024-10-23 15:07 | XMS_ITS | Clinical Summary ---
Author Organization [facility] Address [address] [place] [address] Care Team Providers Care Publications Writer Name Role Phone Unavailable Primary Care Provider Unavailabl e Encounters Date Type Department Care Team Description 09/13/2024 External Device Data [facility] ABSTRACTION Provider, Abstract 09/12/2024 External Device Data [facility] ABSTRACTION Provider, Abstract 08/25/2024 3:15 PM [facility] Ancillary Procedure [facility] [address] [place] [id number] Kingsley Ruff MD Low back pain at multiple sites 08/25/2024 3:00 PM [employer] Ancillary Procedure [facility] [address] [place] [address] Kingsley Ruff MD Low back pain at multiple sites 08/09/2024 3:00 PM [employer] [facility] [address] [place] [address] Delia Sebastian PA Degenerative lumbar spinal stenosis 08/08/2024 External Device Data [facility] ABSTRACTION Provider, Abstract from Last 3 Months Social History Tobacco Use Types Packs/Day Years Used Date Smoking Tobacco: Never Assessed Sex and Gender Information Value Date Recorded Sex Assigned at Not on file Legal Sex Male 6:01 PM [employer] Gender Identity Not on file Sexual Orientation Not on file Plan of Treatment Health Maintenance Due Date Last Done Comments Pre-Diabetes and Diabetes Screening 1970 HEPATITIS B VACCINES (1 of 3 - 19+ 3-dose series) 01/02 COLORECTAL SCREENING 2015 Colorectal Cancer Screening 2015 FIT-DNA Q 3 years 2015 FIT/FOBT Q 1 year 2015 Flex Sig/CT Colonography Q 5 years 2015 ZOSTER VACCINE (1 of 2) 01/16/2020 INFLUENZA VACCINE (#1) 2024 DTAP/TDAP/TD VACCINES (2 - Td or Tdap) 05/09/2029 Procedures Procedure Name Priority Date/Time Associated Diagnosis Comments CT LUMBAR SPINE WO CONTRAST Routine 08/25/2024 3:02 PM [employer] Low back pain at multiple sites XR LUMBAR SPINE 4+ VW Routine 08/25/2024 2:33 PM [employer] Low back pain at multiple sites MRI LUMBAR WO CONTRAST Routine 08/09/2024 3:11 PM [employer] Degenerative lumbar spinal stenosis from Last 3 Months Results * CT LUMBAR SPINE WO CONTRAST (08/25/2024 3:02 PM [employer]) Anatomical Region Laterality Modality Spine Computed Tomogra phy 08/25/2024 3:02 PM [employer] Impressions 08/25/2024 3:35 PM [employer] Impression: 1. Partial lumbarization of S1 vertebral body with intervertebral disc at S1-S2. 2. Mild retrolisthesis of L3 on L4 and L4 on L5. 3. Multilevel degenerative disc disease with disc protrusions and facet osteoarthritis and a few areas of neural foraminal stenosis, as described above. Narrative 08/25/2024 3:35 PM [employer] EXAM: CT LUMBAR SPINE WO CONTRAST DATE: 08/25/2024 CLINICAL HISTORY: Low back pain and limited range of motion TECHNIQUE: Computed tomographic images of the lumbar spine were obtained in the axial plane in both bone and soft tissue windows. Coronal and sagittal reformatted images were performed in conjunction with lumbar spine radiographs performed on the same day. Comparison was made to a prior lumbar spine MRI performed August 09, 2024 and prior lumbar spine radiographs performed November 05, 2023. FINDINGS: In addition to 5 gdf-wts-gmpnzxl lumbar vertebral bodies, partial lumbarization of S1 vertebral body is again identified with an intervertebral disc at S1-S2. There is mild retrolisthesis of L3 on L4 and L4 on L5. The vertebral body heights are normal without evidence of fracture. There is mild T11-T12 and T12-L1 and minimal L1-L2 degenerative disc disease and moderate L5-S1 degenerative disc disease with vacuum phenomenon. Bilateral facet osteoarthritis at multiple levels in the lumbar spine is most severe at L3-L4. A mild disc protrusion is present at L3-L4 without central canal stenosis. There is mild bilateral neural foraminal stenosis at L3-L4. A disc protrusion is present at L4-L5 without central canal stenosis. There is esqd-cm-ujakyprf bilateral neural foraminal stenosis at L4-L5. The disc protrusion is present at L5-S1 without central canal stenosis. There is mild right and moderate to severe left neural foraminal stenosis at L5-S1. The gallbladder is surgically absent. The overlying soft tissues are normal. Procedure Note Deb Angeles MD - 08/25/2024 EXAM: CT LUMBAR SPINE WO CONTRAST DATE: 08/25/2024 CLINICAL HISTORY: Low back pain and limited range of motion TECHNIQUE: Computed tomographic images of the lumbar spine were obtained in the axial plane in both bone and soft tissue windows. Coronal and sagittal reformatted images were performed in conjunction with lumbar spine radiographs performed on the same day. Comparison was made to a prior lumbar spine MRI performed August 09, 2024 and prior lumbar spine radiographs performed November 05, 2023. FINDINGS: In addition to 5 jtv-gfk-detlidb lumbar vertebral bodies, partial lumbarization of S1 vertebral body is again identified with an intervertebral disc at S1-S2. There is mild retrolisthesis of L3 on L4 and L4 on L5. The vertebral body heights are normal without evidence of fracture. There is mild T11-T12 and T12-L1 and minimal L1-L2 degenerative disc disease and moderate L5-S1 degenerative disc disease with vacuum phenomenon. Bilateral facet osteoarthritis at multiple levels in the lumbar spine is most severe at L3-L4. A mild disc protrusion is present at L3-L4 without central canal stenosis. There is mild bilateral neural foraminal stenosis at L3-L4. A disc protrusion is present at L4-L5 without central canal stenosis. There is wrpe-ad-kcxomztn bilateral neural foraminal stenosis at L4-L5. The disc protrusion is present at L5-S1 without central canal stenosis. There is mild right and moderate to severe left neural foraminal stenosis at L5-S1. The gallbladder is surgically absent. The overlying soft tissues are normal. Impression: 1. Partial lumbarization of S1 vertebral body with intervertebral disc at S1-S2. 2. Mild retrolisthesis of L3 on L4 and L4 on L5. 3. Multilevel degenerative disc disease with disc protrusions and facet osteoarthritis and a few areas of neural foraminal stenosis, as described above. us Kingsley Ruff MD CT ORDERABLES Final Resu lt * XR LUMBAR SPINE 4+ VW (08/25/2024 2:33 PM [facility] [employer]) Anatomical Region Laterality Modality Spine Computed Radiogr aphy 08/25/2024 2:33 PM [employer] Impressions 08/25/2024 2:56 PM [employer] IMPRESSION: 1. Partial lumbarization of the S1 vertebral body. 2. Mild retrolisthesis of L3 on L4 is unchanged with flexion and minimally increases with extension. 3. Multilevel degenerative disc disease and facet osteoarthritis, as described above Narrative 08/25/2024 2:56 PM [employer] EXAM: XR LUMBAR SPINE 4+ VW DATE: 08/25/2024 CLINICAL HISTORY: Low back pain TECHNIQUE: AP, lateral neutral, lateral flexion and lateral extension views of the lumbar spine were submitted for review. Comparison was made to a lumbar spine MRI performed August 09, 2024 and prior lumbar spine radiographs performed November 05, 2023. FINDINGS: There are 5 uic-rlt-jyxjjqu lumbar vertebral bodies as well as partial lumbarization of S1 vertebral body with a small intervertebral disc at S1-S2. Mild retrolisthesis of L3 on L4 is unchanged with flexion and minimally increases with extension. The vertebral body heights are normal without evidence of fracture. Mild T11-T12 and T12-L1 and moderate L5-S1 degenerative disc disease is unchanged. There is also mild T10-T11 degenerative disc disease. Bilateral facet osteoarthritis throughout the lumbar spine is most severe at L4-L5 and L5-S1. 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 Cholecystectomy clips are identified in the right upper quadrant. Procedure Note Deb Angeles MD - 08/25/2024 EXAM: XR LUMBAR SPINE 4+ VW DATE: 08/25/2024 CLINICAL HISTORY: Low back pain TECHNIQUE: AP, lateral neutral, lateral flexion and lateral extension views of the lumbar spine were submitted for review. Comparison was made to a lumbar spine MRI performed August 09, 2024 and prior lumbar spine radiographs performed November 05, 2023. FINDINGS: There are 5 ijx-usr-znaommq lumbar vertebral bodies as well as partial lumbarization of S1 vertebral body with a small intervertebral disc at S1-S2. Mild retrolisthesis of L3 on L4 is unchanged with flexion and minimally increases with extension. The vertebral body heights are normal without evidence of fracture. Mild T11-T12 and T12-L1 and moderate L5-S1 degenerative disc disease is unchanged. There is also mild T10-T11 degenerative disc disease. Bilateral facet osteoarthritis throughout the lumbar spine is most severe at L4-L5 and L5-S1. 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 Cholecystectomy clips are identified in the right upper quadrant. IMPRESSION: 1. Partial lumbarization of the S1 vertebral body. 2. Mild retrolisthesis of L3 on L4 is unchanged with flexion and minimally increases with extension. 3. Multilevel degenerative disc disease and facet osteoarthritis, as described above us Kingsley Ruff MD [facility] ORDERAB LES Final Result * MRI LUMBAR WO CONTRAST (08/09/2024 3:11 PM [employer]) Anatomical Region Laterality Modality Spine Magnetic Resonan ce 08/09/2024 3:11 PM [employer] Impressions 08/09/2024 3:40 PM [employer] IMPRESSION: 1. Partial lumbarization of S1 vertebral body. 2. Multilevel disc protrusions and facet osteoarthritis of the lumbar spine and lower thoracic spine with areas of neural foraminal stenosis, as described above. Narrative 08/09/2024 3:40 PM [employer] EXAM: MRI LUMBAR WO CONTRAST DATE: 08/09/2024 CLINICAL HISTORY: Low back pain and limited range of motion, Degenerative lumbar spinal stenosis TECHNIQUE: Multiplanar, multisequence magnetic resonance images of the lumbar spine were obtained without the administration of contrast. Comparison was made to lumbar spine radiographs performed November 05, 2023 and a prior lumbar spine MRI performed August 26, 2023. A thoracic spine series performed September 18, 2022 was also reviewed for numeration of ribs. FINDINGS: Partial lumbarization of the S1 vertebral body with an intervertebral disc at S1-S2 is again identified. Bony alignment is normal. Moderate Modic type II changes are present at L5-S1. Small T1 and T2 hyperintense bone marrow lesions in the T11 and L5 vertebral bodies are sales service representative of osseous hemangiomas. The conus ends at the L2 level. Signal in the visible portion of the spinal cord is normal. Disc desiccation is present at L5-S1. On the sagittal images, a mild disc protrusion and mild bilateral facet osteoarthritis are present at T11-T12 without central canal stenosis or neural foraminal narrowing. At T12-L1, a mild disc protrusion is present without central canal stenosis or neural foraminal narrowing. At L1-L2, a mild disc protrusion and mild bilateral facet osteoarthritis are present without central canal stenosis or neural foraminal narrowing. At L2-L3, a mild disc protrusion and bilateral facet osteoarthritis are present without central canal stenosis or left neural foraminal narrowing. There is minimal right neural foraminal narrowing. At L3-L4, a disc protrusion and bilateral facet osteoarthritis are present without central canal stenosis. There is mild right and minimal left neural foraminal stenosis. At L4-L5, a disc protrusion is present with a suspected annular tear in the left foraminal zone. Bilateral facet osteoarthritis is also present without central canal stenosis. There is mild to moderate bilateral neural foraminal stenosis with abutment of the exiting bilateral L4 nerve roots in the neural foramina. At L5-S1, a disc protrusion and bilateral facet osteoarthritis are present without central canal stenosis. There is mild right and flgw-iv-hgrmkfdf left neural foraminal stenosis with abutment of the exiting left L5 nerve root in the neural foramen. At S1 and S2, there is no evidence of disc bulge, central canal stenosis or neural foraminal narrowing. Procedure Note Deb Angeles MD - 08/09/2024 EXAM: MRI LUMBAR WO CONTRAST DATE: 08/09/2024 CLINICAL HISTORY: Low back pain and limited range of motion, Degenerative lumbar spinal stenosis TECHNIQUE: Multiplanar, multisequence magnetic resonance images of the lumbar spine were obtained without the administration of contrast. Comparison was made to lumbar spine radiographs performed November 05, 2023 and a prior lumbar spine MRI performed August 26, 2023. A thoracic spine series performed September 18, 2022 was also reviewed for numeration of ribs. FINDINGS: Partial lumbarization of the S1 vertebral body with an intervertebral disc at S1-S2 is again identified. Bony alignment is normal. Moderate Modic type II changes are present at L5-S1. Small T1 and T2 hyperintense bone marrow lesions in the T11 and L5 vertebral bodies are sales service representative of osseous hemangiomas. The conus ends at the L2 level. Signal in the visible portion of the spinal cord is normal. Disc desiccation is present at L5-S1. On the sagittal images, a mild disc protrusion and mild bilateral facet osteoarthritis are present at T11-T12 without central canal stenosis or neural foraminal narrowing. At T12-L1, a mild disc protrusion is present without central canal stenosis or neural foraminal narrowing. At L1-L2, a mild disc protrusion and mild bilateral facet osteoarthritis are present without central canal stenosis or neural foraminal narrowing. At L2-L3, a mild disc protrusion and bilateral facet osteoarthritis are present without central canal stenosis or left neural foraminal narrowing. There is minimal right neural foraminal narrowing. At L3-L4, a disc protrusion and bilateral facet osteoarthritis are present without central canal stenosis. There is mild right and minimal left neural foraminal stenosis. At L4-L5, a disc protrusion is present with a suspected annular tear in the left foraminal zone. Bilateral facet osteoarthritis is also present without central canal stenosis. There is mild to moderate bilateral neural foraminal stenosis with abutment of the exiting bilateral L4 nerve roots in the neural foramina. At L5-S1, a disc protrusion and bilateral facet osteoarthritis are present without central canal stenosis. There is mild right and nutu-in-amlqrqtx left neural foraminal stenosis with abutment of the exiting left L5 nerve root in the neural foramen. At S1 and S2, there is no evidence of disc bulge, central canal stenosis or neural foraminal narrowing. IMPRESSION: 1. Partial lumbarization of S1 vertebral body. 2. Multilevel disc protrusions and facet osteoarthritis of the lumbar spine and lower thoracic spine with areas of neural foraminal stenosis, as described above. Delia GONZALES MR ORDERABLES Final Result from Last [address] [facility] [id number]
== END 2024-10-23 13:25 | disposition home or self-care (01) ==
PROVIDERS: PCP Physician Assistant; Visit Provider Neurological Surgery
DX: R60.9 Edema, unspecified (principal)
CPT/HCPCS: 93971

== ENCOUNTER 2025-02-05 08:04 | Outpatient (CLI) | payer OTHER, SELFPAY ==
--- NOTE | ~2025-02-05 | XR_ITS ---
Left Shoulder Technique: AP and scapular Y views were obtained. Clinical History: Pain Findings: No fracture or dislocation is seen. Osseous alignment is anatomic. The glenohumeral and acr omioclavicular joint spaces are preserved. Soft tissues are unremarkable. Impression: Unremarkable left shoulder radiographs. Reviewed, dictated and finalized at [facility]. Impression: Unremarkable left shoulder radiographs.
== END 2025-02-05 08:05 | disposition home or self-care (01) ==
PROVIDERS: PCP Orthopaedic Surgery; Visit Provider Physician Assistant
DX: M25.512 Pain in left shoulder (principal)
CPT/HCPCS: 73030

== ENCOUNTER 2025-06-22 15:41 | Outpatient (CLI) | payer OTHER, SELFPAY ==
--- NOTE | ~2025-06-22 | XR_ITS ---
EXAMINATION: XR elbow RT min 3V, 06/22/2025 15:45 DOOR TENDER HISTORY: Pain in right elbow COMPARISON: No comparisons available. Findings: No acute fracture or malalignment. No significant degenerative changes. Soft tissues unremarkable. Impression: No acute fracture or malalignment. Reviewed, dictated and finalized at location P. TENDER Impression: No acute fracture or malalignment.
== END 2025-06-22 15:42 | disposition home or self-care (01) ==
PROVIDERS: PCP Physician Assistant; Visit Provider Physician Assistant
DX: M25.521 Pain in right elbow (principal)
CPT/HCPCS: 73080